=== PATIENT | female | born 1965 | race African-American/Black ===

== ENCOUNTER 2016-06-29 11:55 | Inpatient (IN) | payer BC, SELFPAY ==
[2016-06-23 13:53] LABS: BASOPHILS 0.3 %; BASOPHILS ABSOLUTE 0.02 10/3/uL (0.0-0.16); EOSINOPHILS 1.5 %; EOSINOPHILS ABSOLUTE 0.09 10/3/uL (0.0-0.53); HEMATOCRIT 39.7 % (36.0-48.0); HEMOGLOBIN 13.8 g/dL (12.0-16.0); IMMATURE GRANULOCYTES 0.3 %; IMMATURE GRANULOCYTES ABSOLUTE 0.02 10/3/uL (0.0-0.11); LYMPHOCYTES 55.8 %; LYMPHOCYTES ABSOLUTE 3.35 10/3/uL (0.67-4.30); MEAN CORPUS HGB CONC 34.8 g/dL (32.0-36.0); MEAN CORPUSCULAR HEMOGLOB 28.3 pg (26.0-34.0); MEAN CORPUSCULAR VOLUME 81.4 fL (80-100); MEAN PLATELET VOLUME 11.7 fL (9.2-13.0); MONOCYTES 7.2 %; MONOCYTES ABSOLUTE 0.43 10/3/uL (0.21-1.20); NEUTROPHILS 34.9 %; NEUTROPHILS ABSOLUTE 2.09 10/3/uL (2.02-8.40); PLATELET COUNT 175 10/3/uL (150-400); RBC DISTRIBUTION WIDTH 15.9 % (12.0-16.0); RED CELL COUNT 4.88 10/6/uL (4.0-5.6)
[2016-06-23 13:55] LABS: MANUAL DIFF NO %
[2016-06-23 13:58] LABS: PROTIME (NOT ORD) 13.4 SEC (12.0-14.5)
[2016-06-23 14:06] LABS: A/G RATIO 0.8 (0.7-1.9); ALBUMIN 3.9 G/DL (3.5-5.0); ALKALINE PHOSPHATASE 60 U/L (45-117); BUN (BLOOD UREA NITROGEN) 15 MG/DL (6-23); CALCIUM, SERUM 10.2 MG/DL (8.5-10.4); CHLORIDE, SERUM 104 MMOL/L (96-112); CO2 (CARBON DIOXIDE) 27 MMOL/L (24-34); CREATININE 0.88 MG/DL (0.55-1.02); GFR AFRICAN AMERICAN 88 ML/MIN (>=60); GFR NON AFRICAN AMERICAN 76 ML/MIN (>=60); GLOBULIN 4.6 G/DL (2.5-4.1); GLUCOSE, SERUM 84 MG/DL (60-99); POTASSIUM, SERUM 3.8 MMOL/L (3.5-5.3); SGOT(AST) 18 U/L (5-40); SGPT(ALT) 21 U/L (5-65); SODIUM, SERUM 139 MMOL/L (135-148); TOTAL BILIRUBIN 0.3 MG/DL (0-1.2); TOTAL PROTEIN 8.5 G/DL (6.0-8.5)
[2016-06-23 14:56] LABS: ASCORBIC ACID (UR NOT ORDER) NEG (NEG); BILIRUBIN, URINE NEGATIVE (NEG); KETONE, URINE NEGATIVE (NEG); LEUKOCYTE ESTERASE(NOT OR NEG (NEG); WBC (NOT ORDERED) (RFLEX) < 1 (0-5)
--- NOTE | ~2016-06-29 | DS ---
Discharge Summary [facility] [address] [place]. [address] NAME: ARELI UREÑA : 61 STATUS : DIS IN PAT#: [id number] AGE: 50 ADM/REG DATE : 06/29/16 MR#: [id number] REPORT SERV DATE: 07/15/16 DICTATED BY: ELISEO WASHINGTON DATE: 07/15/16 REPORT STATUS : Draft TRANSCRIBED BY: LISA DATE: 07/15/16 Data Collection from hospitalization DISCHARGE DIAGNOSES: 1. Severe left knee degenerative joint disease. 2. Rheumatoid arthritis. 3. Gastroesophageal reflux disease. CONSULTATIONS: None. PROCEDURES PERFORMED: Left posterior stabilized total knee replacement, cemented, 06/29/2016. PATHOLOGY: Joint, bone, and tissue, left knee - end-stage degenerative joint disease with eburnation and repair. MEDICATIONS: Colace 100 mg twice a day, ferrous sulfate 300 mg with breakfast and supper, Theragran tablets one tablet with breakfast, Protonix 40 mg daily, Coumadin as instructed, Deltasone 5 mg daily, Tylenol 650 mg every four hours as needed, Mylanta 30 mL as needed, Dulcolax 15 mg as needed, milk of magnesia 30 mL as needed, Zofran 4 mg every four hours as needed, Percocet 5/325 one to two tablets every four hours as needed, MiraLAX powder one packet twice a day as needed, Enbrel 25 mg subcutaneously weekly as instructed, and tramadol 50 mg every six hours as needed for moderate pain. CONDITION AT DISCHARGE: Stable. DISPOSITION: The patient was discharged to [facility] on a regular diet with activities as instructed. HOSPITAL COURSE: This is a 50-year-old female who had complained of [id number] constant left knee pain. The approximate date of onset was 02/12/2016. The patient said her pain was due to an accident/injury when she fell down a flight of stairs injuring her left knee, but she also had intermittent pain from rheumatoid arthritis for over 10 years. She said that she had left knee pain for about 20 years. The location of the pain was medial, lateral across the patella, and patellar tubercle. She has severe left knee degenerative joint disease, treatment options were discussed, and it was elected to proceed with surgical intervention. She was admitted to the hospital at this time for further evaluation and treatment. Upon admission, she was taken to the operating room where she underwent the above-mentioned procedure. She tolerated this well, and there were no complications. On postop day #1, she was up sitting in a bedside chair. SONYA hose were in place. Protonix, Enbrel, and prednisone were continued. On postop day #2, she was doing well but was insistent on going to a rehabilitation facility. She had normal distal pulses. Her dressings were clean, dry, and intact. On 12th, she was up sitting in a bedside chair. She had no focal deficits. She was evaluated by Occupational and Physical Therapy. Over the next couple of days, she continued to participate with Physical Therapy. She did complain of some constipation. H and H were low. She did have some dizziness. Discharge planning was performed. On , Discharge Summary [facility] [address] [facility] [place]. [address] NAME: ARELI UREÑA : 61 STATUS : DIS IN [facility]#: [id number] AGE: 50 ADM/REG DATE : 06/29/16 MR#: [id number] REPORT SERV DATE: 07/15/16 DICTATED BY: ELISEO WASHINGTON DATE: 07/15/16 REPORT STATUS : Draft TRANSCRIBED BY: MODL DATE: 07/15/16 she said that her left knee pain was 10/10. She said her dizziness had improved. Discharge planning continued. She received two units of packed red blood cells. Prednisone was continued for her rheumatoid arthritis. On 07/05/2016, she was alert and cooperative. She had no focal deficits. Discharge instructions were given. Due to her improved and stable condition, she was discharged to [facility] with the above-stated instructions. Information collected by: Adriana Lyons I submit the above information as my discharge summary. ASHWIN/LISA Clarence Washington M.D. / [id number] CC: Leda Tejeda Dr. [facility]
--- NOTE | ~2016-06-29 | OP ---
Record Of Operation [facility] [address] [place]. [address] NAME: ARELI UREÑA : 61 STATUS : ADM IN PAT#: [id number] AGE: 50 ADM/REG DATE : 06/29/16 MR#: [id number] REPORT SERV DATE: 06/29/16 DICTATED BY: ELISEO WASHINGTON DATE: 06/29/16 REPORT STATUS : Draft TRANSCRIBED BY: MODL DATE: 06/29/16 DATE OF PROCEDURE: 06/29/2016 PREOPERATIVE DIAGNOSIS: Severe left knee degenerative joint disease. POSTOPERATIVE DIAGNOSIS: Severe left knee degenerative joint disease. OPERATION: Left posterior stabilized total knee replacement, cemented. SIDE: Left. SIZE: See chart. ANESTHESIA: See chart. ESTIMATED BLOOD LOSS: About 10 mL. TOURNIQUET TIME: Approximately 1 hour and 10 minutes. COMPLICATIONS: None. SPECIMENS: Articular surfaces. PROCEDURE: The patient was appropriately identified and marked. The operative side agreed with the consent form and it was checked by all members of the surgical team. The patient was taken to the operating room and anesthesia was induced per the anesthesiologist. The patient was carefully transferred to the operating table without incident. The patient received appropriate prophylactic antibiotics and a Brown catheter was placed in the standard sterile technique. The patient was then carefully positioned, padded, prepped and draped in the normal sterile fashion. The operative leg had been appropriately identified and checked by all members of the operating team against the consent form and found to be the correct limb. The patient's lower extremity was then exsanguinated with an Jl wrap and a tourniquet was inflated to 350 mm/Hg. Sharp dissection was carried out through a straight midline longitudinal incision and electrocautery through the fat. Sharp quad splitting approach was carried out between about the medial 10 percent of the tendon and the lateral 90 percent of the tendon and down around the medial aspect of the patella and then 1 cm medial to the tibial tubercle. The patella was carefully everted and the posterior fat pad was excised and gentle MCL elevation was carried out off the proximal medial tibia subperiosteally. IM guide was placed in the distal femur after using the appropriate drill. The distal femoral cutting guide was held with 2 pins and the distal cut made. Meniscal fragments and the ACL and the PCL were excised with electrocautery, carefully staying anterior to the posterior fat pad. The proximal tibial alignment guide was set appropriately and the proximal tibial cut made. Spacer block verified full extension with excellent mediolateral balance. Sizing guide was used to place 2 drill holes in the distal femur and the four-in-one cutting block was then placed, impacted and checked Record Of Operation [facility] [address] [place]. [address] NAME: ARELI UREÑA : 61 STATUS : ADM IN PAT#: [id number] AGE: 50 ADM/REG DATE : 06/29/16 MR#: [id number] REPORT SERV DATE: 06/29/16 DICTATED BY: ELISEO WASHINGTON DATE: 06/29/16 REPORT STATUS : Draft TRANSCRIBED BY: LISA DATE: 06/29/16 to be sure it would not notch with an gregorio wing and it was held with 2 pins. The anterior cut, posterior cut, anterior chamfer and posterior chamfer cuts were made. The pins were removed and the block was removed. A posterior release was carried out with a curved 3/4 inch osteotome staying right on the bone posteriorly. The box-cut guide was then placed, impacted and held with 2 pins and a reciprocating saw was used to cut out the box. With the trial components in place, there was excellent medial/lateral balance. The patella was then measured with a caliper, cut first with an oscillating saw and then reamed with a patella reamer. With the trial patella in place, there was excellent patellar tracking. Rotation was marked on the tibia and the tibia prepared with a drill and stamp chisel. All surfaces were then copiously irrigated with pulsatile lavage, carefully dried and then vacuum-mixed cement was pressurized with a cement gun in a doughy phase. The tibial component was placed, impacted and excess cement was removed. The cement was then pressurized in the femur and placed on the posterior runners of the femoral component, which was placed, impacted and excess cement removed and the knee was brought out into extension on a trial spacer. The cement was then pressurized in the patella. Patellar component was then placed, clamped and excess cement was removed. Once all cement was hardened, the knee was taken through range of motion. Further extruded cement was removed with a small osteotome. Then based on the trial inserts, we decided on the actual insert, which was placed in the standard fashion and held with a locking mechanism. The knee was then copiously irrigated and then closed in a layered fashion over a medium Hemovac drain superolaterally with interrupted #1 in the deep fascia, 2-0 subcutaneous and melchor in the skin. The wounds were dressed sterilely and the tourniquet was deflated. The patient was then awakened and taken to the postanesthesia care unit without incident. All counts were correct at the end of the case. ALLY/LISA Clarence Washington M.D. / [id number] CC: Clarence Washington M.D.
[~2016-06-29 11:55] MED LIST: ENBREL25 MG SC; P5 PO; PROTONIX PO; ULTRAM50 PO
[2016-06-30 11:28] LABS: HEMATOCRIT 28.1 % (36.0-48.0); HEMOGLOBIN 9.7 g/dL (12.0-16.0)
[2016-06-30 11:36] LABS: BUN (BLOOD UREA NITROGEN) 12 MG/DL (6-23); CHLORIDE, SERUM 106 MMOL/L (96-112); CO2 (CARBON DIOXIDE) 27 MMOL/L (24-34); CREATININE 0.78 MG/DL (0.55-1.02); GFR AFRICAN AMERICAN 101 ML/MIN (>=60); GFR NON AFRICAN AMERICAN 87 ML/MIN (>=60); GLUCOSE, SERUM 124 MG/DL (60-99); POTASSIUM, SERUM 3.7 MMOL/L (3.5-5.3); SODIUM, SERUM 138 MMOL/L (135-148)
[2016-06-30 11:37] LABS: CALCIUM, SERUM 8.3 MG/DL (8.5-10.4)
[2016-06-30 12:38] LABS: INTERNATIONAL NORMAL RATI 1.3 UNITS (-)
[2016-06-30 12:40] LABS: PROTIME (NOT ORD) 16.1 SEC (12.0-14.5)
[2016-07-01 13:07] LABS: INTERNATIONAL NORMAL RATI 2.2 UNITS (-); PROTIME (NOT ORD) 24.6 SEC (12.0-14.5)
[2016-07-01 13:13] LABS: HEMOGLOBIN 8.1 g/dL (12.0-16.0)
[2016-07-01 13:16] LABS: HEMATOCRIT 23.6 % (36.0-48.0)
[2016-07-02 06:05] LABS: HEMATOCRIT 20.5 % (36.0-48.0); HEMOGLOBIN 7.4 g/dL (12.0-16.0)
[2016-07-02 06:08] LABS: INTERNATIONAL NORMAL RATI 2.4 UNITS (-); PROTIME (NOT ORD) 25.6 SEC (12.0-14.5)
[2016-07-03 07:15] LABS: PROTIME (NOT ORD) 22.1 SEC (12.0-14.5)
[2016-07-03 10:46] LABS: HEMATOCRIT 19.6 % (36.0-48.0); HEMOGLOBIN 6.9 g/dL (12.0-16.0)
[2016-07-04 05:17] LABS: HEMATOCRIT 27.5 % (36.0-48.0); HEMOGLOBIN 9.9 g/dL (12.0-16.0)
[2016-07-04 05:23] LABS: INTERNATIONAL NORMAL RATI 1.7 UNITS (-); PROTIME (NOT ORD) 19.8 SEC (12.0-14.5)
[2016-07-04 06:58] LABS: BUN (BLOOD UREA NITROGEN) 12 MG/DL (6-23); CALCIUM, SERUM 8.6 MG/DL (8.5-10.4); CHLORIDE, SERUM 107 MMOL/L (96-112); CO2 (CARBON DIOXIDE) 27 MMOL/L (24-34); CREATININE 0.57 MG/DL (0.55-1.02); GFR AFRICAN AMERICAN 124 ML/MIN (>=60); GFR NON AFRICAN AMERICAN 107 ML/MIN (>=60); POTASSIUM, SERUM 3.7 MMOL/L (3.5-5.3); SODIUM, SERUM 140 MMOL/L (135-148)
[2016-07-04 06:59] LABS: GLUCOSE, SERUM 82 MG/DL (60-99)
[2016-07-05 05:07] LABS: HEMOGLOBIN 10.7 g/dL (12.0-16.0)
[2016-07-05 05:08] LABS: HEMATOCRIT 30.5 % (36.0-48.0)
[2016-07-05 05:26] LABS: INTERNATIONAL NORMAL RATI 1.6 UNITS (-); PROTIME (NOT ORD) 19.2 SEC (12.0-14.5)
== END 2016-07-05 19:00 | DRG 470 ==
LOC: SDC/OF 11:55 → PACU 17:18 → 3SO 19:22
PROVIDERS: Nurse Practitioner Acute Care; Specialist
PROC: 0SRD0J9 Replacement of Left Knee Joint with Synthetic Substitute, Cemented, Open Approach (ICD-10-PCS; principal; 2016-06-29 14:45)
PROC: 30233N1 Transfusion of Nonautologous Red Blood Cells into Peripheral Vein, Percutaneous Approach (ICD-10-PCS; 2016-07-03)
DX: M17.12 Unilateral primary osteoarthritis, left knee (principal); D62 Acute posthemorrhagic anemia; K21.9 Gastro-esophageal reflux disease without esophagitis; M06.9 Rheumatoid arthritis, unspecified
CPT/HCPCS: 36415; 71020; 80048; 80053; 81001; 85014; 85018; 85025; 85610; 86850; 86900; 86901; 86920; 87641; 88305; 88311; 93005; 97110-GP; 97116-GP; 97161-GP; 97165-GO; 97530-GP; A9270-GY; C1776; J0690; J1170; J1200; J1885; J2250; J2270; J2274; J2405; J2710; J2795; J3010; P9016